=== PATIENT | female | born 1970 | race Caucasian/White ===

== ENCOUNTER 2021-07-02 06:13 | Day surgery (SDC) | payer SELFPAY ==
[2021-07-02 07:11] VITALS: BMI 23.3
[2021-07-02] MEDS ORDERED: PROPOFOL 20 ML ONE ×2 (07:15→11:48)
[2021-07-02] MEDS ORDERED: fentaNYL CITRATE 250 MCG/5 ML VIAL ONE (07:15)
[2021-07-02] MEDS ORDERED: ROCURONIUM BROMIDE 50 MG/5 ML SYRINGE ONE ×2 (07:15→09:08)
[2021-07-02] MEDS ORDERED: HYDROmorphone HCL/PF 1 MG/ML VIAL ONE (07:15)
[2021-07-02] MEDS ORDERED: MIDAZOLAM HCL 2 MG/2 ML SINGLE DOSE VIAL ONE ×2 (07:15)
[2021-07-02] MEDS ORDERED: SODIUM CHLORIDE 0.9% P/F 10 ML VIAL IJ ONE (07:20)
[2021-07-02] MEDS ORDERED: LIDOCAINE HCL 1%, 10 MG/ML (20ML VIAL) ONE (07:29)
[2021-07-02] MEDS ORDERED: BUPIVACAINE HCL/PF 0.25% (2.5MG/ML) 10 ML VIAL ONE (07:29)
[2021-07-02] MEDS ORDERED: BUPIVACAINE HCL/PF 2.5 MG/ML - 30 ML VIAL IJ ONE (07:29)
[2021-07-02] MEDS ORDERED: EPINEPHrine/PF 1 MG/1 ML (1:1,000) AMPULE ONE ×2 (07:29→10:57)
[2021-07-02] MEDS ORDERED: SCOPOLAMINE HYDROBROMIDE 1 PATCH PATCH.TD72 ONE (07:32)
[2021-07-02] MEDS ORDERED: ALBUTEROL SO4 0.083% IH SOL 2.5 MG/3 ML VIAL.NEB. NEB ONE (07:53)
[2021-07-02] MEDS ORDERED: ALBUTEROL SO4 HFA INHALER IH ONE (07:56)
[2021-07-02] MEDS ORDERED: ceFAZolin SODIUM 1 GM VIAL ONE (09:04)
[2021-07-02] MEDS ORDERED: DEXAMETHASONE SOD PHOSPHATE 4 MG/1 ML VIAL ONE (09:04)
[2021-07-02] MEDS ORDERED: ONDANSETRON 4 MG/2 ML VIAL ONE (09:04)
[2021-07-02] MEDS ORDERED: BUPIVACAINE HCL/PF 0.25% (2.5MG/ML) 10 ML VIAL IJ ONE (09:30)
[2021-07-02] MEDS ORDERED: NEOSTIGMINE METHYLSULFATE 0.5 MG/1 ML - 10 ML MDV ONE (10:07)
[2021-07-02] MEDS ORDERED: GLYCOPYRROLATE 0.2 MG/1 ML VIAL ONE (10:07)
[2021-07-02] MEDS ORDERED: oxyCODONE HCL 5 MG TABLET PO PRN ×3 (12:44→12:46)
[2021-07-02] MEDS ORDERED: ONDANSETRON 4 MG/2 ML VIAL IVPB PRN (12:44)
[2021-07-02] MEDS ORDERED: LACTATED RINGERS SOLUTION 1,000 ML IV SCH ×2 (12:45→13:00)
[2021-07-02] MEDS ORDERED: ONDANSETRON 4 MG/2 ML VIAL IVPUSH PRN (12:46)
[2021-07-02] MEDS: PROMETHAZINE HCL 25 MG/1 ML VIAL IVPUSH PRN ×2 (12:55→13:25)
[2021-07-02] MEDS ORDERED: ACETAMINOPHEN INJECTION 100 ML IVPB ONE (12:56)
[2021-07-02] MEDS: ACETAMINOPHEN 1000 MG/100 ML BAG IVPB PRN ×2 (13:00→13:10)
[2021-07-02 14:45] VITALS: TEMP 97.8
[2021-07-02 17:26] VITALS: PULSE 71
[2021-07-02 17:27] VITALS: BP 114/64
== END 2021-07-02 18:15 | disposition home or self-care (01) ==
LOC: FASU 06:13
PROVIDERS: ATTEND Plastic Surgery
PROC: 0J073ZZ Alteration of Back Subcutaneous Tissue and Fascia, Percutaneous Approach (ICD-10-PCS; 2021-07-02)
PROC: 0H0V3ZZ Alteration of Bilateral Breast, Percutaneous Approach (ICD-10-PCS; principal; 2021-07-02 09:01)
PROC: 0H0V3ZZ Alteration of Bilateral Breast, Percutaneous Approach (ICD-10-PCS; 2021-07-02 09:01)
DX: N62 Hypertrophy of breast (principal); E88.1 Lipodystrophy, not elsewhere classified
CPT/HCPCS: 88305-TC; 94760